=== PATIENT | male | born 1990 | race African-American/Black ===

== ENCOUNTER → 2016-07-23 | Outpatient (CLI) | payer BC ==
[~2016-07-23] MED LIST: CELEXA40 MG PO; SEROQUEL50 MG PO; TYLENOL 325MG325 MG PO
== END ==
LOC: BHSO 15:56
DX: F41.1 Generalized anxiety disorder (principal)

== ENCOUNTER → 2016-11-19 | Outpatient (CLI) | payer BC | LOC: BHSO 15:59 | DX: F41.1 Generalized anxiety disorder (principal) ==

== ENCOUNTER → 2017-03-18 | Outpatient (CLI) | payer BC | LOC: BHSO 16:11 | DX: F20.9 Schizophrenia, unspecified (principal) ==

== ENCOUNTER → 2017-07-20 | Outpatient (CLI) | payer BC | LOC: BHSO 15:49 | DX: F41.1 Generalized anxiety disorder (principal) | CPT/HCPCS: G0463 ==

== ENCOUNTER → 2017-09-15 | Outpatient (CLI) | payer BC | LOC: BHSO 15:06 | DX: F41.1 Generalized anxiety disorder (principal) | CPT/HCPCS: G0463 ==

== ENCOUNTER → 2018-01-13 | Outpatient (CLI) | payer BC | LOC: BHSO 14:48 | DX: F41.1 Generalized anxiety disorder (principal) ==

== ENCOUNTER → 2018-07-14 | Outpatient (CLI) | payer BC | LOC: BHSO 14:41 | DX: F41.1 Generalized anxiety disorder (principal) | CPT/HCPCS: G0463 ==

== ENCOUNTER → 2019-01-06 | Outpatient (CLI) | payer BC | LOC: BHSO 16:16 | DX: F41.1 Generalized anxiety disorder (principal) | CPT/HCPCS: G0463 ==

== ENCOUNTER → 2019-05-05 | Outpatient (CLI) | payer BC | LOC: BHSO 16:22 | DX: F41.1 Generalized anxiety disorder (principal) | CPT/HCPCS: G0463 ==

== ENCOUNTER → 2019-11-01 | Outpatient (CLI) | payer BC | LOC: BHSO 16:17 | DX: F41.1 Generalized anxiety disorder (principal) | CPT/HCPCS: G0463 ==

== ENCOUNTER → 2020-05-01 | Outpatient (CLI) | payer BC | LOC: BHSO 16:21 | DX: F41.1 Generalized anxiety disorder (principal) | CPT/HCPCS: G0463 ==